=== PATIENT | male | born 1970 | race African-American/Black ===

== ENCOUNTER 2016-12-16 00:35 | Emergency (ER) | payer OTHER ==
[~2016-12-16] VITALS: Ht 190.5 cm; Wt 86.0 kg
[2016-12-16 00:37] VITALS: BP 149/65; PULSE 84; RESP 16; TEMP 98.7; O2SAT 96
[2016-12-16] MEDS ORDERED: predniSONE 50 MG TAB PO ONE (01:00)
--- NOTE | 2016-12-16 01:01 | PD ---
HPI Chief Complaint: Respiratory Symptoms Time Seen by Provider: 00:51 Travel History International Travel<30 days: No Contact w/Intl Traveler<30days: No Traveled to known affect area: No History of Present Illness HPI 46-year-old male here by private vehicle for evaluation of shortness of breath and wheezing. Patient reports that he gets this usually about once a year around this time when the season is changing. He does not have a formal diagnosis of asthma or COPD. He does smoke black and mild cigars, but states he is cutting back. He denies chest pain. No fevers, chills, cough, or recent illness. No hemoptysis. No history of DVT or PE. PFSH Past Medical History Diminished Hearing: No Past Surgical History Surgical History: No Previous Surgery Social History Alcohol Use: No Tobacco Use: Yes (BLACK AND MILDS) Substance Use: No Allergies-Medications (Allergen,Severity, Reaction): Coded Allergies: Iodine (Verified Allergy, Severe, EDEMA, 12/16/16) Reported Meds & Prescriptions Reported Meds & Active Scripts Active No Active Prescriptions or Reported Medications Review of Systems Except as stated in HPI: all other systems reviewed are Neg Physical Exam Narrative GENERAL: Pleasant, well-developed, well-nourished, comfortable, no acute distress. Speaking full sentences. SKIN: Focused skin assessment warm/dry. HEAD: Atraumatic. Normocephalic. EYES: Pupils equal and round. No scleral icterus. No injection or drainage. ENT: No nasal bleeding or discharge. Mucous membranes pink and moist. NECK: Trachea midline. No JVD. CARDIOVASCULAR: Regular rate and rhythm. No murmur appreciated. RESPIRATORY: No accessory muscle use. Inspiratory and 20 wheezes bilaterally. No rales or rhonchi. Speaking full sentences. Breath sounds equal bilaterally. GASTROINTESTINAL: Abdomen soft, non-tender, nondistended. Hepatic and splenic margins not palpable. MUSCULOSKELETAL: No obvious deformities. No clubbing. No cyanosis. No edema. NEUROLOGICAL: Awake and alert. No obvious cranial nerve deficits. Motor grossly within normal limits. Normal speech. PSYCHIATRIC: Appropriate mood and affect; insight and judgment normal. Data Data Last Documented VS Vital Signs Date Time Temp Pulse Resp B/P Pulse Ox O2 Delivery O2 Flow Rate FiO2 12/16/16 00:46 Room Air 12/16/16 00:37 98.7 84 16 149/65 96 Orders Albuterol-Ipratropium Neb (Duoneb Neb) (12/16/16 01:00) Prednisone (Deltasone) (12/16/16 01:00) [facility] Medical Decision Making Medical Screen Exam Complete: Yes Emergency Medical Condition: Yes Interpretation(s) EKG: Sinus, rate 74, normal axis, normal intervals, no acute ischemic abnormality. Differential Diagnosis Reactive airway disease, asthma, PE, ACS less likely Narrative Course Vital signs reviewed. The patient was given oral prednisone and 3 DuoNeb treatments with significant improvement in respiratory status. His wheezing has improved. He was never in moderate or severe respiratory distress, being able speak full sentences when he walked in without retractions or accessory muscle use. He likely has a component of COPD/reactive airway disease. Since that he smokes black and mild cigars, however he is cutting back on the amount that he smokes. He states he now feels well enough to go home. He is driving back to [place] today. I instructed him to follow up with a primary care physician when he returns home. He was informed on when to return to the emergency department. He verbalizes understanding and agreement with plan. Diagnosis Primary Impression: Reactive airway disease with wheezing Qualified Code: J45.909 - Reactive airway disease with wheezing, unspecified asthma severity, uncomplicated Referrals: Primary Care Physician 3 days Additional Instructions: Follow-up with a primary care physician this week. Take medications as prescribed. Return to the emergency department for worsening symptoms or any other concerns. Scripts Prednisone 50 Mg Tab50 Mg PO DAILY 5 Days Ref 0 Prov:Luis Alberto Kc MD 12/16/16 Albuterol 18 GM Inh (Ventolin Hfa 18 GM Inh)90 Mcg/Act Aer2 Puff INH Q4-6H PRN ( SHORTNESS OF BREATH) #1 INHALER Ref 0 Prov:Luis Alberto Kc MD 12/16/16 Disposition: 01 DISCHARGE HOME Condition: Stable Luis Alberto Kc MD Dec 16, 2016 01:01
[2016-12-16] MEDS: RESP: ALBUTEROL 2.5 MG/IPRATROPIUM 0.5 MG NEB (SCH) INH (01:26)
[2016-12-16] MEDS ORDERED: ALBUTEROL SULFATE 90 MCG/ACT HFA 8 GM INHALER INH ONE (02:00)
[2016-12-16] MEDS ORDERED: VENTAER INH (02:02)
[2016-12-16] MEDS ORDERED: PRED50 PO (02:02)
--- NOTE | 2016-12-16 14:14 | EKG ---
Date Performed: 12/16/2016 Time Performed: 00:49:44 PTAGE: 46 years EKG: Sinus rhythm WITH SINUS ARRHYTHMIA NORMAL ECG NO PREVIOUS TRACING DOCTOR: Isidro De Jesus Interpretating Date/Time 12/16/2016 14:13:16
== END 2016-12-16 02:31 | disposition home or self-care (01) ==
LOC: NEPC 00:35
DX: J45.909 Unspecified asthma, uncomplicated (principal); I49.8 Other specified cardiac arrhythmias; Z72.0 Tobacco use
CPT/HCPCS: 93005; 94664; 99283; J7512